=== PATIENT | female | born 1945 | race Caucasian/White ===

== ENCOUNTER 2018-07-14 19:35 | Inpatient (IN) | payer OTHER ==
[2018-07-14] MEDS ORDERED: NA CHLORIDE 0.9% 500 ML ONE ×2 (20:38→23:15)
[2018-07-14] MEDS ORDERED: LEVALBUTEROL 1.25 MG/3 ML NEB ONE ×2 (20:38→22:28)
--- NOTE | 2018-07-14 21:00 | RAD REPORT ---
EXAM DESCRIPTION: RAD - Chest Single View - 07/14/2018 8:52 pm CLINICAL HISTORY: COUGH Chest pain. COMPARISON: No comparisons FINDINGS: Portable technique limits examination quality. Small vague area of nodularity is seen in the left upper lobe which may be related to superimposition of bony structures or a pulmonary nodule. Nonemergent CT chest followup would be suggested. The lung s are clear of acute infiltrate. The heart is normal in size. Aortic atherosclerosis seen. Cervical h ardware plate is present.
[2018-07-14 21:14] LABS: Absolute Lymphocytes (CBC) 1.9 K/uL (0.7-4.9); Absolute Monocytes 2.4 K/uL (0.1-1.3); Absolute Neutrophil 15.2 K/uL (1.8-8.0); Basophils % 0.5 % (0-1.3); Eosinophils % 0.1 % (0-4.4); Hematocrit 37.5 % (36.0-45.0); Lymphocytes % 9.9 % (15.3-44.8); MCH 31.9 pg (27.0-35.0); MCV 95.9 fL (80-100); Monocytes % 12.2 % (3.3-12.3); RBC Red Blood Cell Count 3.91 M/uL (3.86-4.86)
[2018-07-14 21:24] LABS: Protime INR 1.31
[2018-07-14 21:34] LABS: ALT/SGPT 7 U/L (12-78); AST/SGOT 19 U/L (15-37); Alkaline Phosphatase 82 U/L (45-117); BUN Blood Urea Nitrogen 16 mg/dL (7-18); Bicarbonate 26 mmol/L (21-32); Bilirubin Direct 0.5 mg/dL (0-0.2); CKMB Creatine Kinase MB 1.8 ng/mL (0.3-3.6); Creatine Phosphokinase 182 U/L (26-192); Glucose Level 126 mg/dL (74-106); Potassium 3.3 mmol/L (3.5-5.1); Protein, Total 7.4 g/dL (6.4-8.2); Sodium Level 141 mmol/L (136-145); Troponin (Emerg Dept Use Only) < 0.02 ng/mL (0.0-0.045)
[2018-07-14] MEDS ORDERED: METHYLPREDNISOLONE 125 MG INJ ONE (21:54)
[2018-07-14 22:06] LABS: Blood Gas Oxyhemoglobin 85.6 % (94-97); Blood O2 Saturation 87.3 % (92-98.5)
--- NOTE | 2018-07-14 23:38 | ER ---
Nurse's Notes [facility] Name: Yessy Beltran Age: 72 yrs Sex: Female : 1945 Arrival Date: 07/14/2018 Time: 19:37 Bed 6 Private MD: Diagnosis: Acute respiratory failure with hypoxia Presentation: 07/14 19:43 Acuity: ANUJA 2 aj1 19:45 Presenting complaint: Patient states: Shortness of breath, productive cough, and fever aj1 for the past 3 days. Respirations even and labored, patient is having trouble speaking due to shortness of breath. O2 sat 88% on room air. Patient taken to bed 6 and triaged in room. Placed on 2L nc O2 sat up to 96%. Breath sounds with wheezes bilaterally. 19:45 Transition of care: patient was not received from another setting of care. Onset of aj1 symptoms was July 11, 2018. Risk Assessment: Do you want to hurt yourself or someone else? Patient reports no desire to harm self or others. Initial Sepsis Screen: Does the patient meet any 2 criteria? RR > 20 per min. HR > 90 bpm. Does the patient have a suspected source of infection? Yes: Productive cough/pneumonia If YES to both, name of provider notified: Rocco GONZALES. Care prior to arrival: None. 19:45 Method Of Arrival: Wheelchair aj1 Triage Assessment: 19:45 General: Appears distressed, uncomfortable, Behavior is cooperative, appropriate for aj1 age. 19:45 Pain: Denies pain. Neuro: Level of Consciousness is awake, alert, obeys commands, aj1 Speech is normal. Cardiovascular: Patient's skin is warm and dry. Rhythm is sinus tachycardia. 19:45 Respiratory: Reports shortness of breath at rest cough that is productive, Airway is aj1 patent Respiratory effort is even, labored, Respiratory pattern is regular, symmetrical, tachypnea Breath sounds with wheezes bilaterally. Onset: The symptoms/episode began/occurred 3 days ago, the patient has moderate shortness of breath. Derm: Skin is dusky, pale. Historical: - Allergies: 20:03 Penicillins; aj1 20:03 Sulfa (Sulfonamide Antibiotics); aj1 20:03 Vancomycin; aj1 - Home Meds: 20:03 Prednisone Oral [Active]; Tramadol Oral [Active]; cyanocobalamin (vit B-12) injection aj1 injection [Active]; pantoprazole oral oral [Active]; losartan-hydrochlorothiazide oral oral [Active]; hydroxychloroquine oral oral [Active]; metoprolol succinate oral oral [Active]; Methotrexate Sodium Oral [Active]; gabapentin oral oral [Active]; Folic Acid Oral [Active]; paroxetine oral oral [Active]; atorvastatin oral oral [Active]; Vitamin C Oral [Active]; - PMHx: 20:03 GERD; Hypertension; Hyperlipidemia; encephalitis; sepsis; Rheumatoid Arthritis; aj1 - Immunization history:: Flu vaccine is not up to date. - Social history:: Smoking status: Patient uses tobacco products, denies chronic smoking, but will smoke occasionally. - Ebola Screening: : Patient denies travel to an Ebola-affected area in the 21 days before illness onset. Screenin:32 Abuse screen: Denies threats or abuse. Denies injuries from another. Nutritional ao screening: No deficits noted. Tuberculosis screening: No symptoms or risk factors identified. Fall Risk None identified. Assessment: 19:56 General: Appears in no apparent distress. uncomfortable, Behavior is cooperative, ao anxious. Pain: Denies pain. Neuro: Level of Consciousness is awake, alert, obeys commands, Oriented to person, place, time, situation, Appropriate for age Moves all extremities. Full function Speech is normal, Facial symmetry appears normal. Cardiovascular: Capillary refill < 3 seconds Patient's skin is warm and dry. Rhythm is regular. Respiratory: Airway is patent Respiratory effort is labored, Respiratory pattern is hyperventilation Breath sounds are diminished bilaterally. Respiratory: Reports shortness of breath at rest cough that is productive. GI: No signs and/or symptoms were reported involving the gastrointestinal system. : No signs and/or symptoms were reported regarding the genitourinary system. EENT: No signs and/or symptoms were reported regarding the EENT system. Derm: Skin is intact, Skin is pink, warm \T\ dry. normal, Skin temperature is warm. Musculoskeletal: Circulation, motion, and sensation intact. Range of motion: intact in all extremities. 21:31 Reassessment: Patient appears in no apparent distress at this time. Patient and/or ao family updated on plan of care and expected duration. Pain level reassessed. Patient is alert, oriented x 3, equal unlabored respirations, skin warm/dry/pink. 22:30 Reassessment: Patient appears in no apparent distress at this time. Patient and/or ao family updated on plan of care and expected duration. Pain level reassessed. Waiting on dispo orders. 23:30 Reassessment: Patient appears in no apparent distress at this time. Patient and/or ao family updated on plan of care and expected duration. Pain level reassessed. Patient to be hospitalize as ICU patient. Waiting on hospital room. 07/15 00:35 Reassessment: Patient put on BiPAP. patient tolerating well. ao Vital Signs: 07/14 19:45 BP 168 / 78; Pulse 125; Resp 32; Temp 99.0(O); Pulse Ox 88% on R/A; Weight 58.06 kg; aj1 Height 4 ft. 7 in. (139.70 cm) (R); Pain 0/10; 19:50 Resp 23; Pulse Ox 96% on 2 lpm NC; aj1 21:31 BP 152 / 74; Pulse 126; Resp 22; Pulse Ox 96% on 2 lpm NC; Pain 0/10; ao 22:10 BP 117 / 110; Pulse 121; Resp 20; Pulse Ox 94% on 2 lpm NC; ao 23:20 BP 133 / 105; Pulse 101; Resp 16; Pulse Ox 97% on 2 lpm NC; ao 07/15 00:50 BP 140 / 69; Pulse 101; Resp 24; Pulse Ox 98% on 40% BiPAP; Pain 0/10; ao 07/14 19:45 Body Mass Index 29.75 (58.06 kg, 139.70 cm) aj1 ED Course: 07/14 19:37 Patient arrived in ED. ds1 19:43 Triage completed. aj1 19:43 Rocco Garcia PA is PHCP. cp 19:43 Leonid Godoy MD is Attending Physician. cp 19:45 Arm band placed on Patient placed in an exam room, on oxygen, on cardiac/vascular sonographer, on aj1 pulse oximetry. 19:46 Dilshad Sethi, RN is Primary Nurse. ao 20:51 X-ray completed. Portable x-ray completed in exam room. Patient tolerated procedure ls3 well. 20:52 Chest Single View XRAY In Process Unspecified. EDMS 21:32 Patient has correct armband on for positive identification. ore washer on. Pulse ao ox on. NIBP on. 22:[address] via stretcher. vm2 22:30 CT completed. Patient tolerated procedure well. Patient moved back from CT. vm2 22:35 Chest For Pe Angio In Process Unspecified. EDMS 23:16 Sindy George MD is Hospitalizing Provider. cp 07/15 02:04 No provider procedures requiring assistance completed. Patient admitted, IV remains in ao place. Administered Medications: 07/14 20:35 Drug: Xopenex (3) 1.25 mg Route: Inhalation; ao 21:55 Follow up: Response: No adverse reaction ao 21:11 Drug: NS 0.9% 500 ml Route: IV; Rate: bolus; Site: left antecubital; ao 21:55 Follow up: IV Status: Completed infusion; IV Intake: 500ml ao 21:54 Drug: SOLU-Medrol 80 mg Route: IVP; Site: left antecubital; ao 07/15 00:48 Follow up: Response: No adverse reaction ao 07/14 23:10 Drug: NS 0.9% 500 ml Route: IV; Rate: bolus; Site: left antecubital; ao 07/15 00:45 Follow up: IV Status: Completed infusion; IV Intake: 500ml ao 07/14 23:23 Drug: Xopenex (3) 1.25 mg Route: Inhalation; ao 07/15 00:48 Follow up: Response: No adverse reaction ao 07/14 23:57 Drug: Lopressor 5 mg Route: IVP; Site: left antecubital; ao 07/15 00:40 Follow up: Response: No adverse reaction ao 01:20 Drug: morphine 1 mg Route: IVP; Site: left antecubital; rr5 02:03 Follow up: Response: No adverse reaction ao 01:55 CANCELLED (Physician Discretion): LevaQUIN 500 mg 100 ml IVPB once over 60 mins cp 01:58 Not Given (Patient in ICU at this time): LevaQUIN 750 mg 150 ml IVPB once over 90 mins lp1 Intake: 07/14 21:55 IV: 500ml; Total: 500ml. ao 07/15 00:45 IV: 500ml; Total: 1000ml. ao Outcome: 07/14 23:17 Decision to Hospitalize by Provider. cp 07/15 02:04 Admitted to ICU accompanied by nurse, room 03, with oxygen, on monitor, with chart, ao Report called to MARIO Oswald Condition: stable Instructed on the need for admit. 02:05 Patient left the ED. ao Signatures: Dispatcher [employer] Carmen Mcgee, RN RN aj1 Jyotsna Malik ds1 Rocco Garcia PA PA cp Ortiz, Alex, RN RN ao Deysi Devries 2 Colleen Messer 3 Samuel Loo RN RN rr5 Dione Ann RN lp1 Corrections: (The following items were deleted from the chart) 07/14 20: 20:03 General: Appears distressed, uncomfortable, Behavior is cooperative, appropriate aj1 for age, aj1 : 20:03 Pain: Denies pain. aj1 aj1 20:03 Neuro: Level of Consciousness is awake, alert, obeys commands, Speech is normal, aj1 aj1 : 20:03 Cardiovascular: Patient's skin is warm and dry. Rhythm is sinus tachycardia aj1 aj1 : 20:03 Respiratory: Reports shortness of breath at rest cough that is productive, Airway aj1 is patent Respiratory effort is even, labored, Respiratory pattern is regular, symmetrical, tachypnea Breath sounds with wheezes bilaterally. Onset: The symptoms/episode began/occurred 3 days ago, the patient has moderate shortness of breath aj1
--- NOTE | 2018-07-14 23:38 | EDPHYS ---
Physician Documentation [facility] Name: Yessy Beltran Age: 72 yrs Sex: Female : 1945 Arrival Date: 07/14/2018 Time: 19:37 Bed 6 Private MD: ED Physician Leonid Godoy HPI: 07/14 21:15 This 72 yrs old Female presents to ER via Wheelchair with complaints of cp Cough, Breathing Difficulty. 21:15 The patient has shortness of breath at rest. cp 21:15 Onset: The symptoms/episode began/occurred 3 day(s) ago. cp 21:15 Duration: The symptoms are continuous, and are steadily getting worse. Associated signs cp and symptoms: Pertinent positives: productive cough, fever, Pertinent negatives: chest pain, hemoptysis. Severity of symptoms: in the emergency department the symptoms are unchanged despite home interventions. Historical: - Allergies: 20:03 Penicillins; aj1 20:03 Sulfa (Sulfonamide Antibiotics); aj1 20:03 Vancomycin; aj1 - Home Meds: 20:03 Prednisone Oral [Active]; Tramadol Oral [Active]; cyanocobalamin (vit B-12) injection aj1 injection [Active]; pantoprazole oral oral [Active]; losartan-hydrochlorothiazide oral oral [Active]; hydroxychloroquine oral oral [Active]; metoprolol succinate oral oral [Active]; Methotrexate Sodium Oral [Active]; gabapentin oral oral [Active]; Folic Acid Oral [Active]; paroxetine oral oral [Active]; atorvastatin oral oral [Active]; Vitamin C Oral [Active]; - PMHx: 20:03 GERD; Hypertension; Hyperlipidemia; encephalitis; sepsis; Rheumatoid Arthritis; aj1 - Immunization history:: Flu vaccine is not up to date. - Social history:: Smoking status: Patient uses tobacco products, denies chronic smoking, but will smoke occasionally. - Ebola Screening: : Patient denies travel to an Ebola-affected area in the 21 days before illness onset. ROS: 21:20 Eyes: Negative for injury, pain, redness, and discharge. cp 21:20 Constitutional: Positive for chills, Negative for body aches, fever, poor PO intake. 21:20 ENT: Negative for drainage from ear(s), ear pain, sore throat, difficulty swallowing, cp difficulty handling secretions. 21:20 Neck: Negative for pain with movement, pain at rest, stiffness, tenderness, bony tenderness. 21:20 Cardiovascular: Negative for chest pain, edema. cp 21:20 Respiratory: Positive for cough, "sounds productive", shortness of breath, Negative for hemoptysis. 21:20 Abdomen/GI: Negative for abdominal pain, vomiting, diarrhea, constipation, anorexia, black/tarry stool, rectal bleeding. 21:20 Back: Negative for decreased range of motion, radiated pain. 21:20 : Negative for urinary symptoms. 21:20 Skin: Negative for cellulitis, diaphoresis, rash. 21:20 Neuro: Negative for altered mental status, dizziness, headache, syncope, near syncope, weakness. 21:20 All other systems are negative. Exam: 21:27 Constitutional: The patient appears alert, awake, non-diaphoretic, non-toxic, well cp developed, well nourished, in obvious distress, moderately distressed. 21:27 Head/Face: Normocephalic, atraumatic. cp 21:27 Eyes: Periorbital structures: appear normal, Pupils: equal, round, and reactive to light and accomodation, Extraocular movements: intact throughout, Conjunctiva: normal, no exudate, no injection, Sclera: no appreciated abnormality, Lids and lashes: appear normal, bilaterally. 21:27 ENT: External ear(s): are unremarkable, Ear canal(s): are normal, clear, TM's: bulging, is not appreciated, bilaterally, dullness, bilaterally, erythema, is not appreciated, bilaterally, Nose: is normal, Mouth: Lips: dry, Oral mucosa: moist, Posterior pharynx: is normal, airway is patent, no erythema, no exudate. 21:27 Neck: ROM/movement: is normal, is supple, without pain, no range of motions limitations, no meningismus, no nuchal rigidity, Lymph nodes: no appreciated lymphadenopathy. 21:27 Chest/axilla: Inspection: normal, Palpation: is normal, no crepitus, no tenderness. 21:27 Cardiovascular: Rate: tachycardic, Rhythm: regular, Pulses: Pulses are 2+ in right radial artery and left radial artery. Edema: is not appreciated, JVD: is not appreciated. 21:27 Respiratory: moderate respiratory distress is noted, Respirations: labored breathing, that is moderate, shallow respirations, that is moderate, tachypnea, that is moderate, Breath sounds: decreased breath sounds, that are moderate, throughout, stridor, is not appreciated, wheezing: that is mild, is heard diffusely, Respiratory rate: 23 21:27 Abdomen/GI: Inspection: abdomen appears normal, Bowel sounds: active, all quadrants, Palpation: abdomen is soft and non-tender, in all quadrants, rebound tenderness, is not appreciated, voluntary guarding, is not appreciated, involuntary guarding, is not appreciated. 21:27 Back: CVA tenderness, is absent, vertebral tenderness, is not appreciated. 21:27 Skin: cellulitis, is not appreciated, no rash present. 21:27 Neuro: Orientation: to person, place \\T\\ time. Mentation: lucid, able to follow commands, Cerebellar function: is grossly normal, Motor: moves all fours, strength is normal, Sensation: no obvious gross deficits. 21:38 ECG was reviewed by the Attending Physician. cp 23:20 ECG was reviewed by the Attending Physician. Vital Signs: 19:45 BP 168 / 78; Pulse 125; Resp 32; Temp 99.0(O); Pulse Ox 88% on R/A; Weight 58.06 kg; aj1 Height 4 ft. 7 in. (139.70 cm) (R); Pain 0/10; 19:50 Resp 23; Pulse Ox 96% on 2 lpm NC; aj1 21:31 BP 152 / 74; Pulse 126; Resp 22; Pulse Ox 96% on 2 lpm NC; Pain 0/10; ao 22:10 BP 117 / 110; Pulse 121; Resp 20; Pulse Ox 94% on 2 lpm NC; ao 23:20 BP 133 / 105; Pulse 101; Resp 16; Pulse Ox 97% on 2 lpm NC; ao 07/15 00:50 BP 140 / 69; Pulse 101; Resp 24; Pulse Ox 98% on 40% BiPAP; Pain 0/10; ao 07/14 19:45 Body Mass Index 29.75 (58.06 kg, 139.70 cm) aj1 MDM: 07/14 19:54 Patient medically screened. cp 23:15 Data reviewed: vital signs, nurses notes, lab test result(s), EKG, radiologic studies, cp CT scan, plain films, and as a result, I will admit patient. 07/14 20:28 Order name: Influenza Screen (a \\T\\ B) cp 07/14 20:28 Order name: Urine Culture cp 07/14 20:28 Order name: Basic Metabolic Panel cp 07/14 20:28 Order name: Blood Culture Adult (2) cp 07/14 20:28 Order name: CBC with Diff; Complete Time: 21:20 cp 07/14 21:35 Interpretation: Normal except: WBC 19.6; RDW 15.4; BRENDA% 77.3; LYM% 9.9; NEUT A 15.2; cp MNA 2.4. 07/14 20:28 Order name: Ckmb; Complete Time: 21:39 cp 07/14 20:28 Order name: CPK; Complete Time: 21:39 cp 07/14 20:28 Order name: Lactate; Complete Time: 21:34 cp 07/14 20:28 Order name: LFT's; Complete Time: 21:39 cp 07/14 21:41 Interpretation: Normal except: ALT 7; BILID 0.5; ALB 3.0; GLOB 4.4; A/G 0.7. 07/14 20:28 Order name: Procalcitonin; Complete Time: 22:10 cp 07/14 20:28 Order name: Protime (+inr); Complete Time: 21:34 cp 07/14 21:34 Interpretation: PT 15.5. cp 07/14 20:28 Order name: Ptt, Activated; Complete Time: 21:34 cp 07/14 20:28 Order name: Troponin (emerg Dept Use Only); Complete Time: 21:39 cp 07/14 21:41 Interpretation: Within normal limits: TROPED < 0.02. 07/14 20:28 Order name: Urine Microscopic Only cp 07/14 20:28 Order name: Chest Single View XRAY; Complete Time: 21:21 cp 07/14 20:29 Order name: Influenza Screen (A ; Complete Time: 22:10 EDMS 07/14 20:29 Order name: Urine Culture EDMS 07/14 20:29 Order name: Basic Metabolic Panel; Complete Time: 21:39 EDMS 07/14 22:10 Interpretation: Normal except: K 3.3; GLUC 126; GFR 70. cp 07/14 20:29 Order name: Blood Culture EDMS 07/14 21:40 Order name: ABG; Complete Time: 22:45 cp 07/14 23:11 Interpretation: Normal except: ABGPO2 57.7; ABGSO2 87.3; UQLR5UE 85.6. cp 07/14 21:42 Order name: BNP; Complete Time: 22:10 cp 07/14 22:10 Interpretation: Abnormal: NT PRO-BNP 855. cp 07/14 21:44 Order name: LAB Add On cp 07/14 22:15 Order name: CT Chest For PE Angio 07/14 22:25 Order name: Chest For Pe Angio EDWA 07/14 23:16 Order name: BIPAP 07/15 01:53 Order name: Urine Dipstick--Ancillary (enter results) ct 07/14 20:28 Order name: Accucheck; Complete Time: 21:56 cp 07/14 20:28 Order name: Cardiac monitoring; Complete Time: 21:37 cp 07/14 20:28 Order name: EKG - Nurse/Tech; Complete Time: 21:37 cp 07/14 20:28 Order name: IV Saline Lock - Large Bore; Complete Time: 21:37 cp 07/14 20:28 Order name: Labs collected and sent; Complete Time: 21:37 cp 07/14 20:28 Order name: O2 Per Protocol; Complete Time: 21:37 cp 07/14 20:28 Order name: O2 Sat Monitoring; Complete Time: 21:36 cp 07/14 22:12 Order name: EKG; Complete Time: 23:34 mt 07/14 22:12 Order name: EKG - Nurse/Tech; Complete Time: 23:57 mt EC:38 Rate is 121 beats/min. Rhythm is regular. KY interval is normal. QRS interval is cp normal. QT interval is normal. Interpreted by me. Reviewed by me. 23:20 Rate is 116 beats/min. Rhythm is regular. KY interval is normal. QRS interval is cp normal. QT interval is normal. Interpreted by me. Reviewed by me. Administered Medications: 20:35 Drug: Xopenex (3) 1.25 mg Route: Inhalation; ao 21:55 Follow up: Response: No adverse reaction ao 21:11 Drug: NS 0.9% 500 ml Route: IV; Rate: bolus; Site: left antecubital; ao 21:55 Follow up: IV Status: Completed infusion; IV Intake: 500ml ao 21:54 Drug: SOLU-Medrol 80 mg Route: IVP; Site: left antecubital; ao 07/15 00:48 Follow up: Response: No adverse reaction ao 07/14 23:10 Drug: NS 0.9% 500 ml Route: IV; Rate: bolus; Site: left antecubital; ao 07/15 00:45 Follow up: IV Status: Completed infusion; IV Intake: 500ml ao 07/14 23:23 Drug: Xopenex (3) 1.25 mg Route: Inhalation; ao 07/15 00:48 Follow up: Response: No adverse reaction ao 07/14 23:57 Drug: Lopressor 5 mg Route: IVP; Site: left antecubital; ao 07/15 00:40 Follow up: Response: No adverse reaction ao 01:20 Drug: morphine 1 mg Route: IVP; Site: left antecubital; rr5 02:03 Follow up: Response: No adverse reaction ao 01:55 CANCELLED (Physician Discretion): LevaQUIN 500 mg 100 ml IVPB once over 60 mins cp 01:58 Not Given (Patient in ICU at this time): LevaQUIN 750 mg 150 ml IVPB once over 90 mins lp1 Disposition: 07/14/18 23:17 Hospitalization ordered by Sindy George for Inpatient Admission. Preliminary diagnosis is Acute respiratory failure with hypoxia. - Bed requested for Intensive Care Unit. - Status is Inpatient Admission. ao - Condition is Serious. - Problem is new. - Symptoms are unchanged. UTI on Admission? No Addendum: 07/20/2018 09:46 Co-signature as Attending Physician, Leonid Godoy MD available for consultation at p s1 all times . Signatures: Dispatcher [employer] EDWA Carmen Richards RN RN aj1 Rocco Garcia PA PA cp Ortiz, Alex, RN RN ao Thompson, Moriah mt Singer, Phillip, MD MD ps1 Roque, Raymond, RN RN rr5 Dione Ann RN lp1 Corrections: (The following items were deleted from the chart) 07/14 21:35 21:35 Normal except: WBC 19.6; RDW 15.4; BRENDA% 77.3; LYM% 9.9; NEUT A 15.2. cp cp 22:49 22:48 ECG was reviewed by the Attending Physician. cp cp 22:49 22:48 Rate is 121 beats/min. Rhythm is regular. [place] interval is normal. QRS interval is cp normal. QT interval is normal. Interpreted by me. Reviewed by me. 07/15 00:46 07/14 23:17 Hospitalization Ordered by Sindy George MD for Inpatient Admission. ct Preliminary diagnosis is Acute respiratory failure with hypoxia. Bed requested for Intensive Care Unit. Status is Inpatient Admission. Condition is Serious. Problem is new. Symptoms are unchanged. UTI on Admission? No. cp 07/15 01:55 01:54 LevaQUIN 500 mg 100 ml IVPB once over 60 mins ordered. [facility] 02:05 00:46 07/14/2018 23:17 Hospitalization Ordered by Sindy George MD for Inpatient ao Admission. Preliminary diagnosis is Acute respiratory failure with hypoxia. Bed requested for Intensive Care Unit. Status is Inpatient Admission. Condition is Serious. Problem is new. Symptoms are unchanged. UTI on Admission? No. mt
[2018-07-15] MEDS ORDERED: METOPROLOL TARTRATE 5 MG/5 ML INJ IV ONE (00:01)
--- NOTE | 2018-07-15 00:29 | P.HP ---
Certification for Inpatient Patient admitted to: Inpatient With expected LOS: >2 Midnights Practitioner: I am a practitioner with admitting privileges, knowledge of patient current condition, hospital course, and medical plan of care. Services: Services provided to patient in accordance with Admission requirements found in Title 42 Section 412.3 of the Code of Federal Regulations Patient History Date of Service: 07/14/18 Reason for admission: Acute respiratory failure History of Present Illness: Ms Beltran is a 72-year-old woman with history of hypertension, dyslipidemia, GERD, rheumatoid arthritis on treatment with steroids and methotrexate, who lives in [place] but came to the area visiting her son, start about 1 week ago with progressive shortness of breath and productive cough. She change did call or of her sputum from white clear to greenish/ brownish, she denied any fever but has had chills and sweating episode. The patient came to ER today because her symptoms got worse. At arrival her O2 sat was 88% on room air, improving to about 95% after start 2 L by NC of oxygen support. She was afebrile. Work remarkable for leukocytosis 19.6 K, lactate and procalcitonin are within normal limits. EKG shows sinus tachycardia. Chest-x-ray showed possible left lower lobe infiltrate. CTA chest showed no PE or acute infiltrate. - Past Medical/Surgical History -: Hypertension -: Hyperlipidemia -: GERD -: Rheumatoid arthritis Past Surgical History: Reviewed- Non-Contributory - Family History Family History: Reviewed- Non-Contributory - Social History Smoking Status: Former smoker Alcohol use: No CD- Drugs: No Place of Residence: Home Review of Systems 10-point ROS is otherwise unremarkable Physical Examination - Physical Exam General: Alert, Mild distress (Due to shortness of breath) HEENT: Atraumatic, PERRLA, Mucous membr. moist/pink, EOMI, Sclerae nonicteric Neck: Supple, 2+ carotid pulse no bruit, No LAD, Without JVD or thyroid abnormality Respiratory: Diminished, Crackles/rales (Bibasilar crackles) Cardiovascular: Regular rate/rhythm, Normal S1 S2 Gastrointestinal: Normal bowel sounds, No tenderness Musculoskeletal: No tenderness Integumentary: No rashes Neurological: Normal speech, Normal strength at 5/5 x4 extr, Normal tone, Normal affect Lymphatics: No axilla or inguinal lymphadenopathy - Studies Laboratory Data (last 24 hrs) 07/14/18 21:00: PT 15.5 H, INR 1.31, APTT 32.1 07/14/18 21:00: WBC 19.6 H, Hgb 12.5, Hct 37.5, Plt Count 300 07/14/18 21:00: Sodium 141, Potassium 3.3 L, BUN 16, Creatinine 0.80, Glucose 126 H, Total Bilirubin 1.0, AST 19, ALT 7 L, Alkaline Phosphatase 82 Microbiology Data (last 24 hrs): 07/14/18 21:00 Nasopharnyx Influenza Type A Antigen Screen - Final 07/14/18 21:00 Nasopharnyx Influenza Type B Antigen Screen - Final Assessment and Plan - Problems (Diagnosis) (1) Atypical pneumonia Current Visit: Yes Status: Acute (2) Hypertension Current Visit: Yes Status: Acute Qualifiers: Hypertension type: essential hypertension Qualified Code(s): I10 - Essential (primary) hypertension (3) Dyslipidemia Current Visit: Yes Status: Acute (4) Acute respiratory failure Current Visit: Yes Status: Acute Qualifiers: Respiratory failure complication: hypoxia Qualified Code(s): J96.01 - Acute respiratory failure with hypoxia - Plan The patient will be admitted to the hospital due to acute respiratory failure secondary to possible atypical pneumonia vs early community-acquired pneumonia. According to her tobacco abuse history, she may have some baseline COPD which is not diagnosed yet. Blood and sputum cultures are in process. We will order IV Levaquin and azithromycin, IV steroids and breathing treatment. - Advance Directives Does patient have a Living Will: No Does patient have a Durable POA for Healthcare: No - Code Status/Comfort Care Code Status Assessed: Yes Code Status: Full Code
[2018-07-15] MEDS ORDERED: ALBUTEROL 2.5 MG/3 ML NEB SOL NEB PRN (01:09)
[2018-07-15] MEDS ORDERED: Levofloxacin 750mg IV 750 MG/150 ML BAG IV SCH (01:09)
[2018-07-15] MEDS ORDERED: NA CHLORIDE 0.9% 1,000 ML IV SCH (01:09)
[2018-07-15] MEDS ORDERED: IPRATROPIUM BROM 0.5MG/2.5ML NEB PRN (01:09)
[2018-07-15] MEDS ORDERED: ONDANSETRON 4 MG/2 ML VIAL IV PRN (01:09)
[2018-07-15] MEDS ORDERED: MORPHINE 4 MG/ML SYR ONE (01:27)
[2018-07-15 03:27] LABS: Urine Blood 1+ (NEG); Urine Glucose NEGATIVE (NEG); Urine Protein TRACE (NEG); Urine pH 5.5 (5.0-7.0)
[2018-07-15 03:30] LABS: Urine Culture Reflex Order NOT NEEDED
[2018-07-15 03:31] LABS: Urine Bacteria <20 /HPF (<20); Urine RBC <5 /HPF (NONE SEEN)
[2018-07-15] MEDS: ACETAMINOPHEN 500 MG TAB PO PRN (04:48)
[2018-07-15] MEDS ORDERED: METHYLPREDNISOLONE 40 MG INJ IV SCH (06:00)
--- NOTE | 2018-07-15 07:12 | EKG ---
Test Date: 2018-07-14 Test Time: 21:29:43 Blueprint Tracer: SHAINA MEASUREMENT RESULTS: Intervals: Rate: 121 CA: 138 QRSD: 84 QT: 308 QTc: 437 [place]: P: 63 CA: 138 QRS: 72 T: 33 INTERPRETIVE STATEMENTS: Sinus tachycardia Nonspecific ST and T wave abnormality Abnormal ECG No previous ECG available for comparison Electronically Signed On 07-15-18 07:12:02 CDT by Mar[facility]
--- NOTE | 2018-07-15 07:12 | EKG ---
Test Date: 2018-07-14 Test Time: 22:52:17 Dairy Quality Assurance Officer: SHAINA MEASUREMENT RESULTS: Intervals: Rate: 104 [place]: 138 QRSD: 78 QT: 364 QTc: 478 [place]: P: 47 [place]: 138 QRS: 22 T: 47 INTERPRETIVE STATEMENTS: Sinus tachycardia Otherwise normal ECG Compared to ECG 07/14/2018 21:29:43 ST (T wave) deviation no longer present Electronically Signed On 07-15-18 07:11:58 CDT by Mariano [facility]
[2018-07-15] MEDS ORDERED: POTASSIUM 25 MEQ EFFERV TAB PO ONE (08:00)
[2018-07-15] MEDS: ENOXAPARIN 40 MG/0.4 ML SQ SCH (08:22)
--- NOTE | 2018-07-15 08:27 | RAD REPORT ---
EXAM DESCRIPTION: CT - Chest For Pe Angio - 07/15/2018 4:08 am CLINICAL HISTORY: Chest pain. cough, SOB COMPARISON: No comparisons TECHNIQUE: CT angiogram of the pulmonary arteries was performed with MIP. All CT scans are performed using dose optimization technique as appropriate and may include automated exposure control or mA/KV adjustment according to patient size. FINDINGS: No evidence of pulmonary thromboembolism. No acute aortic finding demonstrated. Emphysematous changes are present throughout the lungs. Mild linear subsegmental atelectasis suspecte d in both lung bases. No significant pericardial or pleural fluid. No acute fracture demonstrated. Small hiatal hernia. Cervical hardware plate is present. IMPRESSION: No evidence of pulmonary thromboembolism. COPD with linear atelectasis in both lung bases. Small hiatal hernia.
--- NOTE | 2018-07-15 08:29 | P.CNS ---
Date of Consult: 07/15/18 Chief Complaint: COPD exacerbation History of Present Illness: Patient is 72 years of age has been sick for about a week was admitted to the hospital complaining of cough congestion productive sputum she fallen about 3 times former heavy smoker quit about a year ago was recently started on inhalers which she did not like no prior history of COPD in no history of any cardiac problems denies any chest pain Allergies Penicillins Allergy (Verified 07/15/18 02:18) Anaphylaxis Sulfa (Sulfonamide Antibiotics) Allergy (Verified 07/15/18 02:18) Itching/Hives/Rash vancomycin Allergy (Verified 07/15/18 02:17) Anaphylaxis - Past Medical/Surgical History Diabetic: Yes -: Hypertension -: Hyperlipidemia -: GERD -: Rheumatoid arthritis -: diabetes -: colon resection - Family History Father Medical History: Cancer - Social History Smoking Status: Current some day smoker Alcohol use: No CD- Drugs: No Caffeine use: Yes Place of Residence: Home Review of Systems 10-point ROS is otherwise unremarkable General: Weakness Respiratory: Cough, Shortness of Breath Physical Examination Temp Pulse Resp BP Pulse Ox 97.8 F 85 24 H 155/67 H 96 07/15/18 04:00 07/15/18 07:00 07/15/18 07:00 07/15/18 07:00 07/15/18 07:00 General: Alert, Oriented x3 HEENT: Atraumatic Neck: Supple Respiratory: Clear to auscultation bilaterally Cardiovascular: No edema, Normal S1 S2 Gastrointestinal: Normal bowel sounds, Soft and benign Laboratory Data (last 24 hrs) 07/14/18 21:00: PT 15.5 H, INR 1.31, APTT 32.1 07/14/18 21:00: WBC 19.6 H, Hgb 12.5, Hct 37.5, Plt Count 300 07/14/18 21:00: Sodium 141, Potassium 3.3 L, BUN 16, Creatinine 0.80, Glucose 126 H, Total Bilirubin 1.0, AST 19, ALT 7 L, Alkaline Phosphatase 82 - Problems (1) COPD exacerbation Current Visit: Yes Status: Acute Plan: Patient is 72 years of age admitted with a presumed COPD exacerbation former heavy smoker been sick for about a week she will need bronchodilators steroids and oral antibiotics Dc IV fluids change to p.o. levofloxacin transfer to the floor patient is mildly hypoxic white count elevated no evidence of thromboembolism patient can be transferred to the floor
[2018-07-15] MEDS: METHYLPREDNISOLONE 40 MG INJ IV SCH ×2 (09:00→16:20)
[2018-07-15] MEDS ORDERED: AZITHROMYCIN IV 500 MG in NA CHLORIDE 0.9% 250 ML IVPB SCH (09:00)
[2018-07-15] MEDS: ARFORMOTEROL TARTRATE 15 MCG/2 ML VIAL.NEB NEB SCH ×2 (09:00→20:06)
[2018-07-15] MEDS: levoFLOXacin 500 MG TAB PO SCH (09:07)
[2018-07-15] MEDS: ALPRAZOLAM 0.5 MG TABLET PO PRN ×2 (10:34→21:14)
[2018-07-15] MEDS: BENZONATATE 100 MG CAP PO PRN ×2 (10:34→23:04)
--- NOTE | 2018-07-15 13:33 | P.PN ---
Subjective Date of Service: 07/15/18 Chief Complaint: COPD exacerbation Patient seen and examined at bedside with RN. Chart reviewed. Case discussed with pulmonology at this time. Patient does appear to be anxious at this time. He is currently off of BiPAP and nasal cannula however does appear to be tachypneic in mild distress. Review of Systems 10-point ROS is otherwise unremarkable Physical Examination - Vital Signs Temperature: 97.8 F Blood Pressure: 155/67 Pulse: 85 Respirations: 24 Pulse Ox (%): 96 - Physical Exam General: Alert, Oriented x3, Mild distress HEENT: Atraumatic, PERRLA, EOMI Neck: Supple, JVD not distended Respiratory: Normal air movement, Crackles/rales, Expiratory wheezes, Inspiratory wheezes Cardiovascular: Regular rate/rhythm, Normal S1 S2 Gastrointestinal: Normal bowel sounds, No tenderness Musculoskeletal: No tenderness Integumentary: No rashes Neurological: Normal speech, Normal tone, Normal affect Lymphatics: No axilla or inguinal lymphadenopathy - Studies Laboratory Data (last 24 hrs) 07/14/18 21:00: PT 15.5 H, INR 1.31, APTT 32.1 07/14/18 21:00: WBC 19.6 H, Hgb 12.5, Hct 37.5, Plt Count 300 07/14/18 21:00: Sodium 141, Potassium 3.3 L, BUN 16, Creatinine 0.80, Glucose 126 H, Total Bilirubin 1.0, AST 19, ALT 7 L, Alkaline Phosphatase 82 Microbiology Data (last 24 hrs): 07/14/18 21:00 Nasopharnyx Influenza Type A Antigen Screen - Final 07/14/18 21:00 Nasopharnyx Influenza Type B Antigen Screen - Final Medications List Reviewed: Yes Assessment And Plan - Current Problems (Diagnosis) (1) Acute respiratory failure Onset Date: 07/15/18 Current Visit: Yes Status: Acute Plan: Acute respiratory failure most likely secondary to COPD exacerbation -patient currently weaned off of BiPAP. Nasal cannula at this time saturating well -will continue to monitor closely. Qualifiers: Respiratory failure complication: hypoxia Qualified Code(s): J96.01 - Acute respiratory failure with hypoxia (2) Atypical pneumonia Onset Date: 07/15/18 Current Visit: Yes Status: Acute Plan: Atypical pneumonia this time on chest x-ray -patient currently on p.o. Levaquin. (3) COPD exacerbation Onset Date: 07/15/18 Current Visit: Yes Status: Acute Plan: COPD exacerbation most likely secondary to pneumonia -pulmonology consulted. Appreciated recommendations -Duonebs, steroids, antibiotics, O2 -Brovana added by Pulmonology (4) Dyslipidemia Onset Date: 07/15/18 Current Visit: Yes Status: Chronic (5) Hypertension Onset Date: 07/15/18 Current Visit: Yes Status: Chronic Qualifiers: Hypertension type: essential hypertension Qualified Code(s): I10 - Essential (primary) hypertension - Plan Pending clinical improvement at this time Discharge Plan: Other Plan to discharge in: 72 Hours - Code Status/Comfort Care Code Status Assessed: Yes Critical Care: Yes
[2018-07-15] MEDS: LEVALBUTEROL 0.63 MG/3 ML NEB NEB SCH ×2 (14:13→20:07)
[2018-07-15] MEDS: IPRATROPIUM BROM 0.5MG/2.5ML NEB SCH ×2 (14:13→20:07)
[2018-07-15] MEDS: GUAIFENESIN/CODEINE 5ML UCUP PO PRN ×2 (15:38→20:48)
[2018-07-15] MEDS: ATORVASTATIN 20 MG TAB PO SCH (20:47)
[2018-07-15] MEDS: PARoxetine HCl 10 MG TAB PO SCH (20:48)
[2018-07-16] MEDS: LEVALBUTEROL 0.63 MG/3 ML NEB NEB SCH ×4 (02:00→19:27)
[2018-07-16] MEDS: IPRATROPIUM BROM 0.5MG/2.5ML NEB SCH ×4 (02:00→19:27)
[2018-07-16] MEDS: METHYLPREDNISOLONE 40 MG INJ IV SCH ×3 (02:18→16:35)
[2018-07-16] MEDS: GUAIFENESIN/CODEINE 5ML UCUP PO PRN ×3 (04:47→21:49)
[2018-07-16 06:23] LABS: Magnesium 1.9 mg/dL (1.8-2.4)
[2018-07-16 07:01] LABS: Absolute Lymphocytes (CBC) 0.7 K/uL (0.7-4.9); Absolute Monocytes 0.9 K/uL (0.1-1.3); Basophils % 0.5 % (0-1.3); Hematocrit 34.5 % (36.0-45.0); Lymphocytes % 4.6 % (15.3-44.8); MCH 30.9 pg (27.0-35.0); MCV 96.3 fL (80-100); MPV 10.4 fL (7.6-11.3); Monocytes % 5.8 % (3.3-12.3); RBC Red Blood Cell Count 3.59 M/uL (3.86-4.86)
[2018-07-16] MEDS: ARFORMOTEROL TARTRATE 15 MCG/2 ML VIAL.NEB NEB SCH ×2 (07:35→19:27)
[2018-07-16] MEDS: METOPROLOL XL 100 MG TAB PO SCH (08:03)
[2018-07-16] MEDS: ENOXAPARIN 40 MG/0.4 ML SQ SCH (08:03)
[2018-07-16] MEDS: ASCORBIC ACID 500 MG TABLET PO SCH (08:04)
[2018-07-16] MEDS: FOLIC ACID 1 MG TABLET PO SCH (08:04)
[2018-07-16] MEDS: LOSARTAN/HCTZ 50-12.5 PO SCH (08:04)
[2018-07-16] MEDS: BENZONATATE 100 MG CAP PO PRN ×2 (08:04→16:35)
[2018-07-16] MEDS: levoFLOXacin 500 MG TAB PO SCH (08:04)
[2018-07-16] MEDS: PANTOPRAZOLE 40MG TABLET PO SCH (08:04)
--- NOTE | 2018-07-16 08:10 | ECHO ---
HEIGHT: 4 ft 7 in WEIGHT: 126 lb 9.6 oz DATE OF STUDY: 07/15/[address]: Miguel Alonzo MD 2-DIMENSIONAL: YES M.MODE: YES DOPPLER: YES COLOR FLOW: YES TDS: NO PORTABLE: NO DEFINITY: NO BUBBLE STUDY: NO DIAGNOSIS: COPD CARDIAC HISTORY: CATHERIZATION: NO SURGERY: NO PROSTHETIC VALVE: NO PACEMAKER: NO MEASUREMENTS (cm) DIASTOLIC (NORMALS) SYSTOLIC (NORMALS) IVSd 1.4 (0.6-1.2) LA Diam (1.9-4.0) LVEF 76% LVIDd 3.1 (3.5-5.7) LVIDs 1.8 (2.0-3.5) %FS 43% LVPWd 1.2 (0.6-1.2) Ao Diam 2.6 (2.0-3.7) 2 DIMENSIONAL ASSESSMENT: RIGHT ATRIUM: NORMAL LEFT ATRIUM: NORMAL RIGHT VENTRICLE: NORMAL LEFT VENTRICLE: NORMAL TRICUSPID VALVE: NORMAL MITRAL VALVE: NORMAL PULMONIC VALVE: NORMAL AORTIC VALVE: NORMAL PERICARDIAL EFFUSION: NONE AORTIC ROOT: NORMAL LEFT VENTRICULAR WALL MOTION: NORMAL DOPPLER/COLOR FLOW: NORMAL COMMENTS: NORMAL LEFT VENTRICULAR SIZE AND FUNCTION. NO WALL MOTION ABNORMALITY. NO EFFUSION. TECHNOLOGIST: Dari GARCIA
[2018-07-16] MEDS ORDERED: HYDROXYCHLOROQUINE 200MG TAB PO SCH (09:00)
[2018-07-16 10:01] LABS: Platelet Estimate ADEQ; Urine White Blood Cell Casts OK
[2018-07-16 10:02] LABS: Blood Morphology Comment NOT SEEN (NOT SEEN)
--- NOTE | 2018-07-16 13:27 | P.PN ---
Subjective Date of Service: 07/16/18 Chief Complaint: COPD exacerbation Patient seen and examined at bedside with RN. Chart reviewed. Case discussed with pulmonology at this time. Patient doing well overall. Currently on nasal cannula saturating well. Does not appear to be anxious or tachypneic at this time. Review of Systems 10-point ROS is otherwise unremarkable Physical Examination - Vital Signs Temperature: 97.1 F Blood Pressure: 160/93 Pulse: 71 Respirations: 27 Pulse Ox (%): 100 - Physical Exam General: Alert, In no apparent distress HEENT: Atraumatic, PERRLA, EOMI Neck: Supple, JVD not distended Respiratory: Normal air movement, Expiratory wheezes, Inspiratory wheezes, Rhonchi/gurgles Cardiovascular: Regular rate/rhythm, Normal S1 S2 Gastrointestinal: Normal bowel sounds, No tenderness Musculoskeletal: No tenderness Integumentary: No rashes Neurological: Normal speech, Normal tone, Normal affect Lymphatics: No axilla or inguinal lymphadenopathy - Studies Medications List Reviewed: Yes Assessment And Plan - Current Problems (Diagnosis) (1) Acute respiratory failure Onset Date: 07/15/18 Current Visit: Yes Status: Acute Plan: Acute respiratory failure most likely secondary to COPD exacerbation -patient currently weaned off of BiPAP. Nasal cannula at this time saturating well -will continue to monitor closely. Qualifiers: Respiratory failure complication: hypoxia Qualified Code(s): J96.01 - Acute respiratory failure with hypoxia (2) Atypical pneumonia Onset Date: 07/15/18 Current Visit: Yes Status: Acute Plan: Atypical pneumonia this time on chest x-ray -patient currently on p.o. Levaquin. -sputum culture pending at this time (3) COPD exacerbation Onset Date: 07/15/18 Current Visit: Yes Status: Acute Plan: COPD exacerbation most likely secondary to pneumonia -pulmonology consulted. Appreciated recommendations -Duonebs, steroids, antibiotics, O2 -Brovana added by Pulmonology (4) UTI (urinary tract infection) Current Visit: Yes Status: Acute Plan: Urinalysis concerning for UTI -urine culture positive for Gram negative rods at this time -on Levaquin at this time as well Qualifiers: Urinary tract infection type: acute cystitis Hematuria presence: without hematuria Qualified Code(s): N30.00 - Acute cystitis without hematuria (5) Dyslipidemia Onset Date: 07/15/18 Current Visit: Yes Status: Chronic (6) Hypertension Onset Date: 07/15/18 Current Visit: Yes Status: Chronic Qualifiers: Hypertension type: essential hypertension Qualified Code(s): I10 - Essential (primary) hypertension - Plan Pending clinical improvement at this time. Would transfer to the regular floor at this time. Will follow up with [facility]
[2018-07-16] MEDS: ALPRAZOLAM 0.5 MG TABLET PO PRN (18:51)
[2018-07-16] MEDS: ATORVASTATIN 20 MG TAB PO SCH (21:49)
[2018-07-16] MEDS: PARoxetine HCl 10 MG TAB PO SCH (21:53)
[2018-07-17] MEDS: METHYLPREDNISOLONE 40 MG INJ IV SCH ×2 (00:49→10:18)
[2018-07-17] MEDS: LEVALBUTEROL 0.63 MG/3 ML NEB NEB SCH ×4 (01:32→20:00)
[2018-07-17] MEDS: IPRATROPIUM BROM 0.5MG/2.5ML NEB SCH ×4 (01:32→19:52)
[2018-07-17] MEDS: ARFORMOTEROL TARTRATE 15 MCG/2 ML VIAL.NEB NEB SCH ×2 (07:58→19:52)
[2018-07-17] MEDS: LOSARTAN/HCTZ 50-12.5 PO SCH (10:09)
[2018-07-17] MEDS: ENOXAPARIN 40 MG/0.4 ML SQ SCH (10:09)
[2018-07-17] MEDS: METOPROLOL XL 100 MG TAB PO SCH (10:11)
[2018-07-17] MEDS: ACETAMINOPHEN 500 MG TAB PO PRN ×2 (10:12→17:50)
[2018-07-17] MEDS: ASCORBIC ACID 500 MG TABLET PO SCH (10:14)
[2018-07-17] MEDS: levoFLOXacin 500 MG TAB PO SCH (10:14)
[2018-07-17] MEDS: PANTOPRAZOLE 40MG TABLET PO SCH (10:14)
[2018-07-17] MEDS: ALPRAZOLAM 0.5 MG TABLET PO PRN ×2 (10:15→17:51)
[2018-07-17] MEDS: FOLIC ACID 1 MG TABLET PO SCH (10:15)
--- NOTE | 2018-07-17 11:46 | P.PN ---
Subjective Date of Service: 07/17/18 Chief Complaint: COPD exacerbation Patient seen and examined at bedside with RN. Chart reviewed. Case discussed with pulmonology at this time. Patient doing well overall. Currently on nasal cannula saturating well. Does not appear to be anxious or tachypneic at this time. Review of Systems 10-point ROS is otherwise unremarkable Physical Examination - Vital Signs Temperature: 97.1 F Blood Pressure: 167/63 Pulse: 67 Respirations: 19 Pulse Ox (%): 99 - Physical Exam General: Alert, In no apparent distress HEENT: Atraumatic, PERRLA, EOMI Neck: Supple, JVD not distended Respiratory: Clear to auscultation bilaterally, Normal air movement Cardiovascular: Regular rate/rhythm, Normal S1 S2 Gastrointestinal: Normal bowel sounds, No tenderness Musculoskeletal: No tenderness Integumentary: No rashes Neurological: Normal speech, Normal tone, Normal affect Lymphatics: No axilla or inguinal lymphadenopathy - Studies Medications List Reviewed: Yes Assessment And Plan - Current Problems (Diagnosis) (1) Acute respiratory failure Onset Date: 07/15/18 Current Visit: Yes Status: Acute Plan: Acute respiratory failure most likely secondary to COPD exacerbation -patient currently weaned off of BiPAP. -Nasal cannula at this time saturating well -will continue to monitor closely. Qualifiers: Respiratory failure complication: hypoxia Qualified Code(s): J96.01 - Acute respiratory failure with hypoxia (2) Atypical pneumonia Onset Date: 07/15/18 Current Visit: Yes Status: Acute Plan: Atypical pneumonia this time on chest x-ray -patient currently on p.o. Levaquin. -sputum culture pending at this time (3) COPD exacerbation Onset Date: 07/15/18 Current Visit: Yes Status: Acute Plan: COPD exacerbation most likely secondary to pneumonia -pulmonology consulted. Appreciated recommendations -Duonebs, steroids, antibiotics, O2 -Brovana added by Pulmonology (4) UTI (urinary tract infection) Current Visit: Yes Status: Acute Plan: Urinalysis concerning for UTI -urine culture positive for ECOLI -on Levaquin at this time as well Qualifiers: Urinary tract infection type: acute cystitis Hematuria presence: without hematuria Qualified Code(s): N30.00 - Acute cystitis without hematuria (5) Dyslipidemia Onset Date: 07/15/18 Current Visit: Yes Status: Chronic (6) Hypertension Onset Date: 07/15/18 Current Visit: Yes Status: Chronic Qualifiers: Hypertension type: essential hypertension Qualified Code(s): I10 - Essential (primary) hypertension - Plan Pending clinical improvement at this time. Discharge Plan: Home Plan to discharge in: 48 Hours - Code Status/Comfort Care Code Status Assessed: Yes Critical Care: No
[2018-07-17] MEDS: predniSONE 10 MG TAB PO SCH (20:33)
[2018-07-17] MEDS: ATORVASTATIN 20 MG TAB PO SCH (20:33)
[2018-07-17] MEDS: PARoxetine HCl 10 MG TAB PO SCH (20:44)
[2018-07-18] MEDS: IPRATROPIUM BROM 0.5MG/2.5ML NEB SCH ×2 (01:33→07:38)
[2018-07-18] MEDS: LEVALBUTEROL 0.63 MG/3 ML NEB NEB SCH ×2 (01:33→07:38)
[2018-07-18] MEDS: GUAIFENESIN/CODEINE 5ML UCUP PO PRN (01:55)
[2018-07-18] MEDS: ACETAMINOPHEN 500 MG TAB PO PRN (02:55)
[2018-07-18] MEDS: ARFORMOTEROL TARTRATE 15 MCG/2 ML VIAL.NEB NEB SCH (07:38)
[2018-07-18] MEDS: ASCORBIC ACID 500 MG TABLET PO SCH (10:17)
[2018-07-18] MEDS: ENOXAPARIN 40 MG/0.4 ML SQ SCH (10:17)
[2018-07-18] MEDS: PANTOPRAZOLE 40MG TABLET PO SCH (10:17)
[2018-07-18] MEDS: METOPROLOL XL 100 MG TAB PO SCH (10:18)
[2018-07-18] MEDS: predniSONE 10 MG TAB PO SCH (10:19)
[2018-07-18] MEDS: levoFLOXacin 500 MG TAB PO SCH (10:20)
[2018-07-18] MEDS: LOSARTAN/HCTZ 50-12.5 PO SCH (10:20)
[2018-07-18] MEDS: FOLIC ACID 1 MG TABLET PO SCH (10:20)
--- NOTE | 2018-07-18 15:13 | P.DS ---
Admission Date: 07/14/18 Discharge Date: 07/18/18 Disposition: ROUTINE DISCHARGE Discharge Condition: GOOD Reason for Admission: COPD exacerbation - Problems (1) Acute respiratory failure Onset Date: 07/15/18 Status: Acute Qualifiers: Respiratory failure complication: hypoxia Qualified Code(s): J96.01 - Acute respiratory failure with hypoxia (2) Atypical pneumonia Onset Date: 07/15/18 Status: Acute (3) COPD exacerbation Onset Date: 07/15/18 Status: Acute (4) UTI (urinary tract infection) Status: Acute Qualifiers: Urinary tract infection type: acute cystitis Hematuria presence: without hematuria Qualified Code(s): N30.00 - Acute cystitis without hematuria (5) Dyslipidemia Onset Date: 07/15/18 Status: Chronic (6) Hypertension Onset Date: 07/15/18 Status: Chronic Qualifiers: Hypertension type: essential hypertension Qualified Code(s): I10 - Essential (primary) hypertension Brief History of Present Illness: Ms Beltran is a 72-year-old woman with history of hypertension, dyslipidemia, GERD, rheumatoid arthritis on treatment with steroids and methotrexate, who lives in [place] but came to the area visiting her son, start about 1 week ago with progressive shortness of breath and productive cough. She change did call or of her sputum from white clear to greenish/ brownish, she denied any fever but has had chills and sweating episode. The patient came to ER today because her symptoms got worse. At arrival her O2 sat was 88% on room air, improving to about 95% after start 2 L by NC of oxygen support. She was afebrile. Work remarkable for leukocytosis 19.6 K, lactate and procalcitonin are within normal limits. EKG shows sinus tachycardia. Chest-x-ray showed possible left lower lobe infiltrate. CTA chest showed no PE or acute infiltrate. Hospital Course: Overall during the hospital stay patient remained stable Patient was initially admitted to the hospital for acute respiratory failure most likely secondary to COPD exacerbation secondary to atypical pneumonia. Patient was started on duo nebs, steroids, IV antibiotics here in the hospital. Was switched over to p.o. Levaquin on resolution of her symptoms. Patient did markedly well while here in the hospital initially was on BiPAP and was successfully weaned to nasal cannula and to the room air after that. Patient then was switched over to p.r.n. nebulizers and p.o. steroids along with p.o. antibiotics. Patient did markedly well here in the hospital and thus was discharged home under stable condition. Patient worked with physical therapy here before discharge and was able to have a good oral intake as well. Patient while here in the hospital also was found to have a urinary tract infection which is positive for E. coli. Which will be covered with Levaquin. Patient then was discharged home on Levaquin for total of 2 weeks Vital Signs/Physical Exam: Temp Pulse Resp BP Pulse Ox 97.6 F 62 18 141/64 H 95 07/18/18 12:00 07/18/18 12:00 07/18/18 12:00 07/18/18 12:00 07/18/18 12:00 General: Alert, In no apparent distress HEENT: Atraumatic, PERRLA, EOMI Neck: Supple, JVD not distended Respiratory: Clear to auscultation bilaterally, Normal air movement Cardiovascular: Regular rate/rhythm, Normal S1 S2 Gastrointestinal: Normal bowel sounds, No tenderness Musculoskeletal: No tenderness Integumentary: No rashes Neurological: Normal speech, Normal tone, Normal affect Lymphatics: No axilla or inguinal lymphadenopathy Laboratory Data at Discharge: WBC 15.8 K/uL (4.3-10.9) H D 07/16/18 05:37 Hgb 11.1 g/dL (12.0-15.0) L 07/16/18 05:37 Hct 34.5 % (36.0-45.0) L 07/16/18 05:37 Plt Count 291 K/uL (152-406) 07/16/18 05:37 PT 15.5 SECONDS (9.5-12.5) H 07/14/18 21:00 INR 1.31 07/14/18 21:00 APTT 32.1 SECONDS (24.3-36.9) 07/14/18 21:00 Sodium 145 mmol/L (136-145) 07/16/18 05:37 Potassium 4.0 mmol/L (3.5-5.1) 07/16/18 05:37 BUN 13 mg/dL (7-18) 07/16/18 05:37 Creatinine 0.70 mg/dL (0.55-1.3) 07/16/18 05:37 Glucose 201 mg/dL (74-106) H 07/16/18 05:37 Magnesium 1.9 mg/dL (1.8-2.4) 07/16/18 05:37 Total Bilirubin 1.0 mg/dL (0.2-1.0) 07/14/18 21:00 AST 19 U/L (15-37) 07/14/18 21:00 ALT 7 U/L (12-78) L 07/14/18 21:00 Alkaline Phosphatase 82 U/L (45-117) 07/14/18 21:00 Home Medications: Aa8/A-Carnitin/Grp/[place]/Hc126 [Gabadone Capsule] 3 cap PO BEDTIME 07/15/18 Ascorbic Acid [Vitamin C] 1 cap PO DAILY 07/15/18 Atorvastatin Calcium 20 mg PO BEDTIME 07/15/18 Cyanocobalamin (Vitamin B-12) [Cyanocobalamin Injection] 1 vial IM DIRECTED 07/15/18 Folic Acid 1 tab PO DAILY 07/15/18 Hydroxychloroquine [Plaquenil*] 200 mg PO M,W,F 07/15/18 Losartan/Hydrochlorothiazide [Losartan-Hctz 50-12.5 mg Tab] 1 tab PO DAILY 07/15 Methotrexate [Methotrexate*] 3 tab PO EVERY 7TH DAY 07/15/18 Metoprolol Succinate [Toprol Xl] 1 tab PO DAILY 07/15/18 PARoxetine HCl [Paroxetine HCl] 20 mg PO BEDTIME 07/15/18 Pantoprazole Sodium 40 mg PO DAILY 07/15/18 traMADol HCL [Ultram*] 50 mg PO Q4HP PRN 07/15/18 levoFLOXacin [Levaquin*] 500 mg PO DAILY #14 tab 07/18/18 predniSONE [Deltasone*] 10 mg PO BID #15 tab 07/18/18 New Medications: levoFLOXacin [Levaquin*] 500 mg PO DAILY #14 tab predniSONE [Deltasone*] 10 mg PO BID #15 tab Diet: Regular Activity: Ad vamsi Followup: Miguel Alonzo MD [ACTIVE - CAN ADMIT] - Shilo Gipson MD [ACTIVE - CAN ADMIT] -
[2018-07-19] MEDS ORDERED: METHOTREXATE 2.5 MG TAB PO SCH (09:00)
[2018-07-26] MEDS ORDERED: CYANOCOBALAMIN 1000MCG/ML INJ IM SCH (09:00)
== END 2018-07-18 13:56 | disposition home or self-care (01) | DRG 189 ==
LOC: ER 19:35 → ERHOLD 23:17 → 3RD-ICU 07-15 01:29 → 2ND 07-16 15:42
PROVIDERS: ADMIT Internal Medicine; ATTEND Family Medicine
PROC: 5A09457 Assistance with Respiratory Ventilation, 24-96 Consecutive Hours, Continuous Positive Airway Pressure (ICD-10-PCS; principal; 2018-07-14)
DX: J96.01 Acute respiratory failure with hypoxia (principal); J18.9 Pneumonia, unspecified organism; N30.00 Acute cystitis without hematuria; J44.0 Chronic obstructive pulmonary disease with (acute) lower respiratory infection; J44.1 Chronic obstructive pulmonary disease with (acute) exacerbation; E78.5 Hyperlipidemia, unspecified; K21.9 Gastro-esophageal reflux disease without esophagitis; M06.9 Rheumatoid arthritis, unspecified; B96.20 Unspecified Escherichia coli [E. coli] as the cause of diseases classified elsewhere; Z88.1 Allergy status to other antibiotic agents; Z88.0 Allergy status to penicillin; Z88.2 Allergy status to sulfonamides; Z87.891 Personal history of nicotine dependence
CPT/HCPCS: 36415; 71045; 71275; 80048; 80076; 81003; 81015; 82550; 82553; 82805; 82962; 83605; 83735; 83880; 84145; 84484; 85025; 85610; 85730; 87040; 87070; 87077; 87086; 87088; 87186; 87205; 87804; 93005; 93306; 94640; 94660; 94760; 96361; 96374; 96375; 97163; 99285; J0456; J1650; J2920; J2930; J7030; J7512; J7605; Q9967